=== PATIENT | female | born 1975 | race Hispanic/Latino ===

== ENCOUNTER 2021-02-17 14:42 | Outpatient (CLI) | payer OTHER | END 2021-02-17 14:43 | disposition home or self-care (01) | LOC: BICRAD 14:42 | PROVIDERS: ATTEND Family Medicine | DX: M54.6 Pain in thoracic spine (principal); M54.5 Low back pain; K80.20 Calculus of gallbladder without cholecystitis without obstruction | CPT/HCPCS: 72072; 72100 ==